=== PATIENT | female | born 1960 | race African-American/Black ===

== ENCOUNTER 2019-02-26 13:50 | Emergency (ER) | payer OTHER ==
[~2019-02-26] VITALS: Ht 172.7 cm; Wt 105.0 kg
[2019-02-26] MEDS ORDERED: HYDROCODONE/ACETAMINOPHEN 5/325MG TABLET PO ONE (16:15)
[2019-02-26 16:33] VITALS: BP 143/62
== END 2019-02-26 18:12 | disposition home or self-care (01) ==
LOC: ER 13:50
DX: M25.562 Pain in left knee (principal); W22.8XXA Striking against or struck by other objects, initial encounter; Y93.89 Activity, other specified; Y92.89 Other specified places as the place of occurrence of the external cause; I10 Essential (primary) hypertension
CPT/HCPCS: 29505; 73560; 99283; L1830